=== PATIENT | male | born 2005 | race Caucasian/White ===

== ENCOUNTER 2024-03-29 07:38 | Inpatient (IN) | payer MEDICAID ==
[~2024-03-29] VITALS: Ht 177.8 cm; Wt 68.2 kg
[2024-03-29] VITALS (16 sets, daily range): BP systolic 101–129; BP diastolic 40–62; PULSE 83–112; RESP 12–33; TEMP 99.9; O2SAT 94–100
[2024-03-29] MEDS: glycopyrrolate 0.2mg/ml inj IV ONE (07:53)
[2024-03-29 08:10] LABS: ABG BASE EXCESS 3.7 mmol/L (-2.0-2.0); ABG HCO3 27.5 mmol/L (22.0-26.0); ABG OXYGEN SATURATION 99.1 % (94-97); ABG PH (T) 7.477 (7.340-7.440); ABG PO2 (T) 128.8 mmHg (75.0-100.0); ALLEN'S TEST POSITIVE; FCOHb 0.3 % (0.0-3.9); FHHb 0.9 % (0.0-5.0); FMetHb 0.3 % (0.0-1.5); FO2Hb 98.5 % (94-97); MODE RESUS BAG; PATIENT TEMPERATURE 36.8; TOTAL HEMOGLOBIN 10.2 G/dl (14.0-17.9)
[2024-03-29 08:10] LABS: BASOPHILS # (AUTO) 0.1 X10'3 (0-0.2); BASOPHILS % (AUTO) 0.4 % (0-1); EOSINOPHILS # (AUTO) 0.4 X10'3 (0-0.9); EOSINOPHILS % (AUTO) 3.4 % (0-6); HEMOGLOBIN 9.3 g/dl (14.0-17.9); LYMPHOCYTES # (AUTO) 1.3 X10'3 (1.1-4.8); LYMPHOCYTES % (AUTO) 10.2 % (21-51); MEAN CORPUSCULAR HEMOGLOBIN 29.1 PG (27.0-31.0); MEAN CORPUSCULAR VOLUME 90.8 FL (78-98); MEAN PLATELET VOLUME 8.7 FL (7.4-10.4); MONOCYTES # (AUTO) 0.9 X10'3 (0-0.9); NEUTROPHILS # (AUTO) 9.7 X10'3 (1.8-7.7); PLATELET COUNT 418 X10'3 (140-440); RED BLOOD COUNT 3.19 X10'6 (4.70-6.10); RED CELL DISTRIBUTION WIDTH 14.8 % (11.5-14.5); WHITE BLOOD COUNT 12.3 X10'3 (4.5-11.0)
[2024-03-29] MEDS: LORazepam 2 mg/ml vial IV ONE ×2 (08:21→09:25)
[2024-03-29 08:33] LABS: ALBUMIN 2.6 G/DL (3.4-5.0); ANION GAP 10 (8-16); BLOOD UREA NITROGEN 16 MG/DL (7-18); BUN/CREATININE RATIO 20.5 (10.0-20.0); CALCIUM 9.2 MG/DL (8.5-10.1); CHLORIDE 105 MMOL/L (99-107); CREATININE 0.78 MG/DL (0.60-1.10); GLUCOSE 92 MG/DL (70-104); POTASSIUM 4.5 MMOL/L (3.5-5.1); PRO BRAIN NATRIURETIC PEPTIDE 78 PG/ML (0-125); SODIUM 143 MMOL/L (135-145); TOTAL CARBON DIOXIDE 27.9 MMOL/L (24-32); eCRCL 147 ML/MIN; eGFR > 90 ML/MIN
[2024-03-29 08:41] LABS: ABG BASE EXCESS 2.5 mmol/L (-2.0-2.0); ABG HCO3 25.8 mmol/L (22.0-26.0); ABG OXYGEN SATURATION 92.6 % (94-97); ABG PCO2 (T) 35.1 mmHg (35.0-48.0); ABG PH (T) 7.484 (7.340-7.440); ALLEN'S TEST POSITIVE; FCOHb 0.3 % (0.0-3.9); FHHb 7.4 % (0.0-5.0); FMetHb 0.3 % (0.0-1.5); MODE PRVC; PEEP 5 cm H2O; RESPIRATORY RATE 22 b/min; TIDAL VOLUME 425 mL; TOTAL HEMOGLOBIN 10.5 G/dl (14.0-17.9)
[2024-03-29] MEDS ORDERED: iohexol 350MG/ML 100ml bottle IV ONE (09:18)
[2024-03-29] MEDS: HYDROmorphone 1 mg/ml syringe IV ONE (09:56)
[2024-03-29] MEDS: piperacillin/tazo 3.375gm/50ml 50 ML IV ONE (11:18)
[2024-03-29] MEDS: normal saline 1000ML IV soln IVB ONE (11:18)
[2024-03-29] MEDS: vancomycin/NS 1 GM ADD-VANTAGE 250 ML IV ONE (11:56)
[2024-03-29] MEDS ORDERED: magnesium hydroxide 30ml (MOM) UD suspension PO PRN (12:30)
[2024-03-29] MEDS ORDERED: ondansetron/PF 4mg/2ml inj IV PRN (12:30)
[2024-03-29] MEDS ORDERED: acetaminophen 325mg tablet PO PRN ×2 (12:30)
[2024-03-29] MEDS: normal saline 1000ml 1,000 ML IV SCH (12:56)
[2024-03-29] MEDS ORDERED: acetaminophen 325mg/10.15ml oral unit dose solution PO PRN (13:06)
[2024-03-29] MEDS: acetaminophen 325mg/10.15ml oral unit dose solution PO PRN (13:26)
[2024-03-29] MEDS: morphine 4 MG/ML inj SYRINge IV PRN (14:13)
[2024-03-29] MEDS ORDERED: FAMO20TA8 GT (14:20)
[2024-03-29] MEDS ORDERED: FER300L GT (14:20)
[2024-03-29] MEDS ORDERED: ATR0.5NEB IH (14:20)
[2024-03-29] MEDS ORDERED: AMA100C GT (14:20)
[2024-03-29] MEDS ORDERED: ENOX40DI8 SUBCUT (14:20)
[2024-03-29] MEDS ORDERED: SCOP1PAT11 TOP (14:49)
[2024-03-29] MEDS ORDERED: OXYC-658 PO (14:49)
[2024-03-29] MEDS ORDERED: DOCU283E RC (14:49)
[2024-03-29] MEDS ORDERED: RISP3TAB42 GT (14:49)
[2024-03-29] MEDS ORDERED: [UNRECOGNIZED DRUG - CODE] GT (14:49)
[2024-03-29] MEDS ORDERED: GUAI100L97 GT (14:49)
[2024-03-29] MEDS ORDERED: LORA2SYR IV (14:49)
[2024-03-29] MEDS ORDERED: POLY17PO10 PO (14:49)
[2024-03-29] MEDS ORDERED: HYDR1LIQ3 IV (14:49)
[2024-03-29] MEDS ORDERED: PANT40SU2 GT (14:49)
[2024-03-29] MEDS ORDERED: ALB0.5UD IH (14:49)
[2024-03-29] MEDS: piperacillin/tazo 4.5gm/100ml 100 ML IV SCH (15:46)
[2024-03-29] MEDS ORDERED: RISP3TAB77 GT (17:20)
[2024-03-29] MEDS ORDERED: DIL2I IVP (17:20)
[2024-03-29] MEDS ORDERED: ACET-890 PO (17:20)
[2024-03-29] MEDS ORDERED: PANT40VI2 IV (17:20)
[2024-03-29] MEDS ORDERED: ENOX30DI4 SQ (17:20)
[2024-03-29] MEDS: famotidine/PF 10 mg/ml inj IV SCH (19:35)
[2024-03-29] MEDS: vancomycin/NS 1 GM ADD-VANTAGE 250 ML IV SCH (19:35)
[2024-03-30] VITALS (25 sets, daily range): BP systolic 97–129; BP diastolic 41–54; PULSE 72–120; RESP 12–36; O2SAT 91–99
[2024-03-30] MEDS: morphine 2 MG/ML inj. syringe IV PRN (02:47)
[2024-03-30 03:20] LABS: ABG BASE EXCESS 1.8 mmol/L (-2.0-2.0); ABG HCO3 25.3 mmol/L (22.0-26.0); ABG OXYGEN SATURATION 98.4 % (94-97); ABG PCO2 (T) 35.8 mmHg (35.0-48.0); ABG PH (T) 7.469 (7.340-7.440); ALLEN'S TEST Modified; FCOHb 0.3 % (0.0-3.9); FHHb 1.6 % (0.0-5.0); FMetHb 0.3 % (0.0-1.5); FO2Hb 97.8 % (94-97); MODE prvc; PATIENT TEMPERATURE 37.4; PEEP 12 cm H2O; RESPIRATORY RATE 12 b/min; TIDAL VOLUME 550 mL; TOTAL HEMOGLOBIN 8.9 G/dl (14.0-17.9)
[2024-03-30 03:34] LABS: BASOPHILS % (AUTO) 0.5 % (0-1); EOSINOPHILS # (AUTO) 0.4 X10'3 (0-0.9); EOSINOPHILS % (AUTO) 4.2 % (0-6); HEMATOCRIT 24.7 % (42.0-52.0); HEMOGLOBIN 8.1 g/dl (14.0-17.9); LYMPHOCYTES # (AUTO) 0.8 X10'3 (1.1-4.8); LYMPHOCYTES % (AUTO) 8.5 % (21-51); MEAN CORPUSCULAR HEMOGLOBIN 29.7 PG (27.0-31.0); MEAN CORPUSCULAR HGB CONC 32.9 g/dL (33.0-36.5); MEAN CORPUSCULAR VOLUME 90.2 FL (78-98); MEAN PLATELET VOLUME 8.8 FL (7.4-10.4); MONOCYTES # (AUTO) 0.6 X10'3 (0-0.9); MONOCYTES % (AUTO) 6.9 % (2-12); NEUTROPHILS # (AUTO) 7.3 X10'3 (1.8-7.7); NEUTROPHILS % (AUTO) 79.9 % (42-75); PLATELET COUNT 354 X10'3 (140-440); RED BLOOD COUNT 2.73 X10'6 (4.70-6.10); RED CELL DISTRIBUTION WIDTH 14.8 % (11.5-14.5); WHITE BLOOD COUNT 9.1 X10'3 (4.5-11.0)
[2024-03-30 03:38] LABS: ALBUMIN 2.3 G/DL (3.4-5.0); ANION GAP 12 (8-16); BLOOD UREA NITROGEN 13 MG/DL (7-18); BUN/CREATININE RATIO 15.5 (10.0-20.0); CALCIUM 9.2 MG/DL (8.5-10.1); CHLORIDE 106 MMOL/L (99-107); CREATININE 0.84 MG/DL (0.60-1.10); GLUCOSE 94 MG/DL (70-104); MAGNESIUM 1.8 MG/DL (1.5-2.4); PHOSPHORUS 4.9 MG/DL (2.3-4.5); POTASSIUM 3.8 MMOL/L (3.5-5.1); SODIUM 144 MMOL/L (135-145); TOTAL CARBON DIOXIDE 26.5 MMOL/L (24-32); eCRCL 136 ML/MIN; eGFR > 90 ML/MIN
[2024-03-30] MEDS: enoxaparin 40mg/0.4ml syringe SUBCUT SCH (09:22)
[2024-03-30] MEDS: VANCOMYCIN LEVEL IV ONE (11:30)
[2024-03-30] MEDS ORDERED: [UNRECOGNIZED DRUG - CODE] IV (13:00)
== END 2024-03-30 17:15 | DRG 133 ==
LOC: ER 07:40 → ED HOLD 12:33 → CICU 2S 16:34
PROVIDERS: ADMIT Internal Medicine Critical Care Medicine; ATTEND Internal Medicine Critical Care Medicine
PROC: 5A1945Z Respiratory Ventilation, 24-96 Consecutive Hours (ICD-10-PCS; principal; 2024-03-29)
PROC: B32T1ZZ Computerized Tomography (CT Scan) of Left Pulmonary Artery using Low Osmolar Contrast (ICD-10-PCS; 2024-03-29)
PROC: B3201ZZ Computerized Tomography (CT Scan) of Thoracic Aorta using Low Osmolar Contrast (ICD-10-PCS; 2024-03-29)
PROC: B32S1ZZ Computerized Tomography (CT Scan) of Right Pulmonary Artery using Low Osmolar Contrast (ICD-10-PCS; 2024-03-29)
DX: J96.21 Acute and chronic respiratory failure with hypoxia (principal); J95.851 Ventilator associated pneumonia; Z93.0 Tracheostomy status; Z99.11 Dependence on respirator [ventilator] status; Z79.899 Other long term (current) drug therapy; Z87.820 Personal history of traumatic brain injury
CPT/HCPCS: 36415; 36600; 71045; 71275; 80048; 82803; 82948; 83605; 83735; 83880; 84100; 84145; 84484; 85018; 85025; 87040; 87070; 93005; 93306; 94002; 94760; 94799; 99285; A6213; A6402; A6449; A7521; C1758; G0378; J1170; J1650; J2060; J2270; J2543; J3370; J3490; J7030; Q9967